=== PATIENT | male | born 1955 | race Asian ===

== ENCOUNTER 2018-12-04 15:10 | Emergency (ER) | payer MEDICARE, OTHER ==
[~2018-12-04] VITALS: Ht 167.6 cm; Wt 63.5 kg
[2018-12-04 15:19] VITALS: BP 141/73
[2018-12-04] MEDS ORDERED: DEXAMETHASONE SOD PHOSPHATE 10 MG/ML VIAL ONE (15:51)
[2018-12-04] MEDS ORDERED: DEXAMETHASONE SOD PHOSPHATE 4 MG/ML VIAL IM ONE (16:00)
== END 2018-12-04 17:29 | disposition home or self-care (01) ==
LOC: ER 15:10
DX: J02.9 Acute pharyngitis, unspecified (principal); J04.0 Acute laryngitis; B95.0 Streptococcus, group A, as the cause of diseases classified elsewhere; F10.10 Alcohol abuse, uncomplicated; Y90.9 Presence of alcohol in blood, level not specified
CPT/HCPCS: 87070; 87880; 96372; 99283; J1100; 86403-TC

== ENCOUNTER 2020-10-17 19:52 | Emergency (ER) | payer OTHER ==
[~2020-10-17] VITALS: Ht 167.6 cm; Wt 65.8 kg
[2020-10-17 22:56] VITALS: BP 128/81
[2020-10-17] MEDS ORDERED: DIPH103G TP (23:09)
== END 2020-10-17 23:26 | disposition home or self-care (01) ==
LOC: ER 20:00
DX: L55.0 Sunburn of first degree (principal); L29.9 Pruritus, unspecified

== ENCOUNTER 2021-02-08 14:12 | Emergency (ER) | payer OTHER ==
[~2021-02-08] VITALS: Ht 167.6 cm; Wt 65.8 kg
[~2021-02-08 14:12] MED LIST: DIPH103G TP
[2021-02-08 14:31] VITALS: BP 140/84
[2021-02-08] MEDS ORDERED: ACETAMINOPHEN ES 500 MG TABLET ONE (15:16)
[2021-02-08] MEDS ORDERED: GUAIFENESIN LA 600 MG TABLET.SA PO ONE ×2 (15:16→15:30)
[2021-02-08] MEDS ORDERED: ACETAMINOPHEN ES 500 MG TABLET PO ONE (15:30)
== END 2021-02-08 15:25 | disposition home or self-care (01) ==
LOC: ER 14:14
DX: B34.9 Viral infection, unspecified (principal); Z20.822 Contact with and (suspected) exposure to COVID-19
CPT/HCPCS: C9803